=== PATIENT | female | born 1985 | race Caucasian/White ===

== ENCOUNTER 2017-03-20 13:48 | Emergency (ER) | payer OTHER ==
[~2017-03-20] VITALS: Ht 167.6 cm; Wt 64.3 kg
[~2017-03-20 13:48] MED LIST: FLEXERIL10 MG PO; MOTRIN600 MG PO; NAPROSYN500 MG PO; NOHOMEMEDS; PEN-VEE K,VEET500 MG PO; PERCOCET 5/31 TABLET PO; SILVADENE20 GM TP; ULTRAM50 MG PO; VICODIN 5-3001 EACH PO
[2017-03-20] MEDS ORDERED: ULTRAM50 MG PO (15:01)
[2017-03-20] MEDS ORDERED: CLEOCIN300 MG PO (15:01)
[2017-03-20 15:10] VITALS: BP 126/92
[2017-03-21] MEDS ORDERED: CLEOCIN300 MG PO (04:48)
== END 2017-03-20 15:12 | disposition home or self-care (01) ==
LOC: EME 13:48
DX: K08.89 Other specified disorders of teeth and supporting structures (principal); R22.0 Localized swelling, mass and lump, head; R51 Headache; F17.200 Nicotine dependence, unspecified, uncomplicated
CPT/HCPCS: 99281; 99283

== ENCOUNTER 2017-03-21 03:36 | Emergency (ER) | payer OTHER ==
[~2017-03-21] VITALS: Ht 167.6 cm; Wt 63.8 kg
[~2017-03-21 03:36] MED LIST changes: +CLEOCIN300 MG PO
[2017-03-21] MEDS ORDERED: CLEOCIN300 MG PO (04:48)
[2017-03-21 05:15] VITALS: BP 122/83
== END 2017-03-21 05:27 | disposition home or self-care (01) ==
LOC: EME 03:36
PROC: 3E0T3BZ Introduction of Anesthetic Agent into Peripheral Nerves and Plexi, Percutaneous Approach (ICD-10-PCS; principal; 2017-03-21)
DX: K04.7 Periapical abscess without sinus (principal)
CPT/HCPCS: 99281; 99284; J2405; J7030

== ENCOUNTER 2017-05-26 11:39 | Emergency (ER) | payer OTHER ==
[~2017-05-26] VITALS: Ht 167.6 cm; Wt 61.2 kg
[2017-05-26] MEDS ORDERED: CLEOCIN300 MG PO (12:57)
[2017-05-26 13:11] VITALS: BP 114/78
== END 2017-05-26 13:12 | disposition home or self-care (01) ==
LOC: EME 11:39
DX: K08.89 Other specified disorders of teeth and supporting structures (principal); F17.200 Nicotine dependence, unspecified, uncomplicated
CPT/HCPCS: 99281; 99283

== ENCOUNTER 2018-03-07 15:42 | Emergency (ER) | payer OTHER ==
[~2018-03-07] VITALS: Ht 167.6 cm; Wt 65.6 kg
[2018-03-07 15:43] VITALS: BP 110/76
== END 2018-03-07 16:01 | disposition left against medical advice (07) ==
LOC: EME 15:42
DX: N93.9 Abnormal uterine and vaginal bleeding, unspecified (principal); Z53.21 Procedure and treatment not carried out due to patient leaving prior to being seen by health care provider